=== PATIENT | female | born 1995 | race Caucasian/White ===

== ENCOUNTER 2022-07-28 18:41 | Emergency (ER) | payer OTHER ==
[~2022-07-28] VITALS: Ht 172.7 cm; Wt 52.2 kg
[2022-07-28] MEDS ORDERED: CYCLOBENZAPRINE10 MG PO (19:42)
[2022-07-28] MEDS ORDERED: MELOXICAM5 MG PO (19:42)
[2022-07-28] MEDS ORDERED: SINGULAIR10 M1 PO (19:43)
[2022-07-28] MEDS ORDERED: MEDROL DOSEPAK4 MG PO (21:11)
== END 2022-07-28 21:32 | disposition home or self-care (01) ==
LOC: ED 18:41
DX: M25.512 Pain in left shoulder (principal); R20.2 Paresthesia of skin; Z79.899 Other long term (current) drug therapy; X58.XXXA Exposure to other specified factors, initial encounter; Y93.89 Activity, other specified; Y92.69 Other specified industrial and construction area as the place of occurrence of the external cause; Y99.0 Civilian activity done for income or pay